=== PATIENT | male | born 1970 | race Two or more races ===

== ENCOUNTER 2017-12-05 21:01 | Emergency (ER) | payer MEDICAID ==
[~2017-12-05] VITALS: Ht 165.1 cm; Wt 93.0 kg
[~2017-12-05 21:01] MED LIST: ATORVASTATIN CA10 MG ORAL; MAXZIDE 37.5 M1 EAC1 PO; NAPROXEN25 G1 MC
[2017-12-05 21:14] VITALS: BP 163/89
[2017-12-05] MEDS ORDERED: TYLENOL EXTRA500 MG ORAL (21:44)
[2017-12-05] MEDS ORDERED: Acetaminophen 500mg (ES) tab ORAL ONE (21:45)
[2017-12-05 21:50] VITALS: BP 152/94
[2017-12-05 21:55] VITALS: BP 152/94
--- NOTE | 2017-12-06 05:40 | Emergency Room Report ---
History of Present Illness General Chief Complaint: Hypertension Source: Patient Present Illness HPI 47-year-old male presents ED for evaluation. Per EMS patient had elevated blood pressure and call 911 today. Daughter at bedside states that patient took his blood pressure medication in the evening instead of in the morning. Denied any headache. Denied any blurry vision. Denied any chest pain or shortness of breath. States he is otherwise compliant with his medications. No other aggravating relieving factors. Denies any other associated symptoms Allergies: Coded Allergies: No Known Allergies (Unverified , 12/05/17) Patient History Past Medical History: HTN Past Surgical History: none Pertinent Family History: none Social History: Denies: smoking, alcohol use, drug use Immunizations: UTD Reviewed Nursing Documentation: PMH: Agreed; PSxH: Agreed Nursing Documentation-PMH Hx Hypertension: Yes - Hyperlipidemia Review of Systems All Other Systems: negative except mentioned in HPI Physical Exam Vital Signs Date Time Temp Pulse Resp B/P (MAP) Pulse Ox O2 Delivery O2 Flow Rate FiO2 12/05/17 20:57 98.1 103 18 195/118 98 Room Air 98.1 Sp02 EP Interpretation: reviewed, normal General Appearance: no apparent distress, alert, GCS 15, non-toxic Head: normocephalic, atraumatic Eyes: bilateral eye normal inspection, bilateral eye PERRL ENT: hearing grossly normal, normal pharynx, no angioedema, normal voice Neck: full range of motion, supple, no meningismus, supple/symm/no masses Respiratory: chest non-tender, lungs clear, normal breath sounds, speaking full sentences Cardiovascular #1: regular rate, rhythm, no edema Cardiovascular #2: 2+ carotid (R), 2+ carotid (L), 2+ radial (R), 2+ radial (L) , 2+ dorsalis pedis (R), 2+ dorsalis pedis (L) Gastrointestinal: normal bowel sounds, non tender, soft, non-distended, no guarding, no rebound Rectal: deferred Genitourinary: normal inspection, no CVA tenderness Musculoskeletal: back normal, gait/station normal, normal range of motion, non- tender Neurologic: alert, oriented x3, responsive, motor strength/tone normal, sensory intact, speech normal Psychiatric: judgement/insight normal, memory normal, mood/affect normal, no suicidal/homicidal ideation Reflexes: 3+ bicep (R), 3+ bicep (L), 3+ tricep (R), 3+ tricep (L), 3+ knee (R) , 3+ knee (L) Skin: normal color, no rash, warm/dry, well hydrated Lymphatic: no adenopathy Medical Decision Making Diagnostic Impression: Primary Impression: Hypertension Qualified Codes: I10 - Essential (primary) hypertension ER Course Hospital Course 47-year-old male presents ED complaining of elevated BP Differential diagnoses include: hypertensive urgency, hypertensive emergency, arrythmia, DC/ACS Clinical course Patient placed on stretcher. After initial history, physical exam reveals male in no acute distress. There is no focal neurological deficits. No nuchal rigidity. Remainder physical exam unremarkable. Presentation consistent with asymptomatic hypertension. Blood pressure has since improved. Patient is safe for discharge I. I feel this is a highly complex case requiring extensive working including EKG/Rhythm strip, Xray/CT/US, Blood/urine lab work, repeat exams while in ED, and administration of strong opiates/narcotics for pain control, admission to hospital or close patient follow up. Diagnosis - hypertension Stable and discharged to home. Instructed to followup with PMD. Return to ED if symptoms recur or worsen Last Vital Signs Date Time Temp Pulse Resp B/P (MAP) Pulse Ox O2 Delivery O2 Flow Rate FiO2 12/05/17 21:55 98.1 90 24 152/94 98 Room Air 98.1 Status: improved Disposition: HOME, SELF-CARE Condition: Stable Scripts Acetaminophen* (TYLENOL EXTRA STRENGTH*) 500 Mg Tablet 500 MG ORAL Q8H PRN for Prn Headache/Temp > 101, #30 TAB 0 Refills Prov: Brian Barbosa MD 12/05/17 Referrals: NOT CHOSEN IPA/,REFERRING (PCP) Patient Instructions: Hypertension, [id number] Brian Barbosa MD Dec 06, 2017 05:40
== END 2017-12-05 21:55 | disposition home or self-care (01) ==
LOC: EDBD 21:01 → EMR 21:36
DX: I10 Essential (primary) hypertension (principal)
CPT/HCPCS: 99283